=== PATIENT | female | born 1985 | race Caucasian/White ===

== ENCOUNTER 2018-01-22 12:55 | Emergency (ER) | payer SELFPAY ==
--- NOTE | 2018-01-22 14:40 | ER Document Report ---
ED Medical Screen (RME) - General Chief Complaint: Abdominal Pain Stated Complaint: ABDOMINAL PAIN Time Seen by Provider: 01/22/18 14:34 Mode of Arrival: Ambulatory Information source: Patient Notes: 32-year-old female with a history of reflux presents with complaint of abdominal pain. Patient states pain has been ongoing for 2 months. Pain is diffusely located. She states her upper abdomen is sharp, intermittent. The pains in her lower abdomen as described as heaviness. Patient has chronic nausea. She states recently she has had urinary frequency and urinary incontinence. Patient has not been seen for this prior. Last menstrual period was 2 days prior to arrival. She denies any sexual activity, vaginal discharge. Surgical history includes cholecystectomy. She admits to chronic soft stools. She denies any fever, chills, chest pain. She does have chronic back pain. I have greeted and performed a rapid medical assessment of the patient. A comprehensive evaluation and assessment will be performed by another ED provider. Medical decision making, lab review/xrays if performed will be reviewed by the ED provider assuming care of the patient. PHYSICAL EXAMINATION: GENERAL: Well-appearing, well-nourished and in no acute distress. HEAD: Atraumatic, normocephalic. EYES: Pupils equal round extraocular movements intact, conjunctiva are normal. ENT: Nares patent NECK: Normal range of motion Abdomen; diffuse tenderness with palpation. LUNGS: No respiratory distress Musculoskeletal: Normal range of motion NEUROLOGICAL: Normal speech, normal gait. PSYCH: Normal mood, normal affect. SKIN: Warm, Dry, normal turgor, no rashes or lesions noted. TRAVEL OUTSIDE OF THE [place] IN LAST 30 DAYS: No - HPI Onset: Other - 2 months prior to arrival Onset/Duration: Constant, Persistent, Worse Quality of pain: Stabbing, Other - Heavy Severity: Moderate Associated Symptoms: Abdominal pain, Diarrhea, Nausea Exacerbated by: Movement, Other - Taking fluids Relieved by: Denies Similar symptoms previously: Yes Recently seen / treated by doctor: No - Related Data Smoking: Non-smoker Frequency of alcohol use: None Drug Abuse: None Allergies/Adverse Reactions: Iodinated Contrast- Oral and IV Dye Allergy (Severe, Verified 01/22/18 14:35) Difficulty breathing Past Medical History - Social History Chew tobacco use (# tins/day): No Frequency of alcohol use: Rare Drug Abuse: None Pulmonary Medical History: Reports: Hx Bronchitis, Hx Pneumonia Neurological Medical History: Reports: Hx Migraine Renal/ Medical History: Reports: Hx Ovarian Cysts. Denies: Hx Peritoneal Dialysis Malignancy Medical History: Reports: Hx Cervical Cancer Musculoskeltal Medical History: Reports Hx Musculoskeletal Deformity, Reports Hx Musculoskeletal Trauma Past Surgical History: Reports: Hx Cholecystectomy, Hx Oral Surgery - Immunizations Immunizations up to date: Yes Hx Diphtheria, Pertussis, Tetanus Vaccination: Yes Physical Exam - Vital signs Vitals: Temp Pulse Resp BP Pulse Ox 98.7 F 78 18 142/93 H 99 01/22/18 13:00 01/22/18 13:00 01/22/18 13:00 01/22/18 13:00 01/22/18 13:00 Course - Vital Signs Vital signs: Temp Pulse Resp BP Pulse Ox 98.7 F 78 18 142/93 H 99 01/22/18 13:00 01/22/18 13:00 01/22/18 13:00 01/22/18 13:00 01/22/18 13:00
[2018-01-22 15:40] LABS: ABSOLUTE EOSINOPHILS # (AUTO) 0.1 10^3/uL (0.0-0.6); ABSOLUTE LYMPHOCYTES (AUTO) 2.3 10^3/uL (0.5-4.7); ABSOLUTE MONOCYTES (AUTO) 0.4 10^3/uL (0.1-1.4); ABSOLUTE NEUT (AUTO) 3.1 10^3/uL (1.7-8.2); BASOPHILS % (AUTO) 0.5 % (0-2); EOSINOPHILS % (AUTO) 1.1 % (0-6); HEMATOCRIT 36.8 % (36.0-47.0); HEMOGLOBIN 12.4 g/dL (12.0-15.5); LYMPHOCYTES % (AUTO) 39.5 % (13-45); MEAN CORPUSCULAR HEMOGLOBIN 28.7 pg (27.0-33.4); MEAN CORPUSCULAR HGB CONC 33.8 g/dL (32.0-36.0); MEAN CORPUSCULAR VOLUME 85 fl (80-97); MONOCYTES % (AUTO) 6.5 % (3-13); PLATELET COUNT 294 10^3/uL (150-450); RED BLOOD COUNT 4.33 10^6/uL (3.72-5.28); RED CELL DISTRIBUTION WIDTH 14.4 % (11.5-14.0); SEGMENTED NEUTROPHILS % (AUTO) 52.4 % (42-78); TOTAL CELLS COUNTED % (AUTO) 100 %; WHITE BLOOD COUNT 5.9 10^3/uL (4.0-10.5)
[2018-01-22 15:48] LABS: ALANINE AMINOTRANSFERASE 21 U/L (9-52); ALBUMIN 3.8 g/dL (3.5-5.0); ALKALINE PHOSPHATASE 72 U/L (38-126); ANION GAP 9 (5-19); ASPARTATE AMINO TRANSFERASE 16 U/L (14-36); BILIRUBIN,DIRECT 0.1 mg/dL (0.0-0.4); BILIRUBIN,TOTAL 0.1 mg/dL (0.2-1.3); BLOOD UREA NITROGEN 5 mg/dL (7-20); CALCIUM 9.1 mg/dL (8.4-10.2); CARBON DIOXIDE 29 mmol/L (22-30); CHLORIDE 106 mmol/L (98-107); GLUCOSE 88 mg/dL (75-110); LIPASE 74.2 U/L (23-300); POTASSIUM 4.2 mmol/L (3.6-5.0); SODIUM 143.8 mmol/L (137-145); TOTAL PROTEIN 6.4 g/dL (6.3-8.2)
[2018-01-22 15:59] LABS: APPEARANCE,URINE CLEAR; BILIRUBIN,URINE NEGATIVE (NEGATIVE); COLOR,URINE STRAW; GLUCOSE, URINE NEGATIVE (NEGATIVE); KETONES,URINE NEGATIVE (NEGATIVE); LEUKOCYTE ESTERASE,URINE NEGATIVE (NEGATIVE); NITRITE,URINE NEGATIVE (NEGATIVE); PROTEIN,URINE NEGATIVE (NEGATIVE); URINE SPECIFIC GRAVITY 1.006; UROBILINOGEN,URINE NEGATIVE mg/dL (<2.0)
[2018-01-22 16:25] VITALS: BP 116/72
--- NOTE | 2018-01-22 16:39 | ER Document Report ---
HPI - HPI Patient complains to provider of: Abdominal pain Onset: Other - Four years, worse over the past few days Onset/Duration: Worse Quality of pain: Sharp Pain Level: 5 Context: Patient presents complaining of abdominal pain to the abdomen for the past 4 years that worsened over the past few days. Patient states that she has had persistent abdominal pain since the of her last child. Patient complains of some urinary frequency and occasional stress incontinence. Patient reports nausea but denies any vomiting or diarrhea. Patient denies any fever. Associated Symptoms: Nausea, Other - Abdominal pain. denies: Nonproductive cough, Productive cough, Diarrhea, Fever, Vomiting Exacerbated by: Denies Relieved by: Denies Similar symptoms previously: Yes Recently seen / treated by doctor: No - ROS ROS below otherwise negative: Yes - CONSTITUTIONAL Constitutional: DENIES: Fever, Chills - CARDIOVASCULAR Cardiovascular: DENIES: Chest pain - RESPIRATORY Respiratory: DENIES: Trouble Breathing, Coughing - GASTROINTESTINAL Gastrointestinal: REPORTS: Abdominal Pain, Nausea. DENIES: Patient vomiting, Diarrhea - URINARY Urinary: REPORTS: Dysuria, Urgency Notes: Incontinence - REPRODUCTIVE Reproductive: DENIES: : - MUSCULOSKELETAL Musculoskeletal: REPORTS: Back Pain - DERM Skin Color: Normal Skin Problems: None Past Medical History - General Information source: Patient - Social History Smoking Status: Current Every Day Smoker Chew tobacco use (# tins/day): No Frequency of alcohol use: Rare Drug Abuse: None Occupation: [employer] Lives with: Family Family History: Reviewed & Not Pertinent Patient has suicidal ideation: No Patient has homicidal ideation: No Pulmonary Medical History: Reports: Hx Bronchitis, Hx Pneumonia Neurological Medical History: Reports: Hx Migraine Renal/ Medical History: Reports: Hx Ovarian Cysts. Denies: Hx Peritoneal Dialysis Musculoskeltal Medical History: Reports Hx Musculoskeletal Deformity, Reports Hx Musculoskeletal Trauma Past Surgical History: Reports: Hx Cholecystectomy, Hx Oral Surgery - Immunizations Immunizations up to date: Yes Hx Diphtheria, Pertussis, Tetanus Vaccination: Yes Vertical Provider Document - CONSTITUTIONAL Exam Limitations: Other - Patient unwilling to let provider proceed with full examination General Appearance: No Apparent Distress - INFECTION CONTROL TRAVEL OUTSIDE OF THE [place] IN LAST 30 DAYS: No - HEENT HEENT: Atraumatic, Normocephalic - NECK Neck: Normal Inspection - RESPIRATORY Respiratory: Breath Sounds Normal, No Respiratory Distress - CARDIOVASCULAR Cardiovascular: Regular Rate, Regular Rhythm, No Murmur - BACK Back: CVA Tenderness-Right, CVA Tenderness-Left - MUSCULOSKELETAL/EXTREMETIES Musculoskeletal/Extremeties: MAEW - NEURO Level of Consciousness: Awake, Alert - DERM Integumentary: Warm, Dry Course - Re-evaluation Re-evalutation: 01/22/18 16:37 Attempted to examine patient and obtain history from patient. Patient became upset after provider asked patient to point to the location of her most severe abdominal pain. Patient stated that her entire abdomen was painful and that she was tired of having to tell multiple people the same story. Patient denies any area of the abdomen that has more severe abdominal tenderness. Provider attempted to explain why she was asking the patient specific questions about her abdominal pain so as to better evaluate her symptoms, patient became increasingly agitated, belligerent and hostile. Patient stated that she would just leave and go to some other hospital because she was tired of waiting here in pain having to tell multiple people her story. Patient states that she needs to have her IV removed or she will rub it out herself and that she is leaving. RN informed of patient's intent to leave. Provider returned to room and attempted to explain risks of leaving to patient, patient very angry, insisting that provider leave the room and that she had nothing else to say to the provider. Provider attempted to encourage patient to return at any point if she wanted to continue with her evaluation, patient again insisted that provider leave the room. - Vital Signs Vital signs: Temp Pulse Resp BP Pulse Ox 98.4 F 63 18 116/72 100 01/22/18 16:21 01/22/18 16:21 01/22/18 16:21 01/22/18 16:21 01/22/18 16:21 - Laboratory Result Diagrams: 01/22/18 15:00 01/22/18 15:00 Laboratory results interpreted by me: 01/22/18 01/22/18 15:00 15:00 RDW 14.4 H BUN 5 L Total Bilirubin 0.1 L 01/22/18 18:26 Labs- Entire Visit 01/22/18 01/22/18 01/22/18 15:00 15:00 15:00 WBC 5.9 RBC 4.33 Hgb 12.4 Hct 36.8 MCV 85 MCH 28.7 MCHC 33.8 RDW 14.4 H Plt Count 294 Seg Neutrophils % 52.4 Lymphocytes % 39.5 Monocytes % 6.5 Eosinophils % 1.1 Basophils % 0.5 Absolute Neutrophils 3.1 Absolute Lymphocytes 2.3 Absolute Monocytes 0.4 Absolute Eosinophils 0.1 Absolute Basophils 0.0 Sodium 143.8 Potassium 4.2 Chloride 106 Carbon Dioxide 29 Anion Gap 9 BUN 5 L Creatinine 0.59 Est GFR ( Amer) > 60 Est GFR (Non-Af Amer) > 60 Glucose 88 Lactic Acid 1.1 Calcium 9.1 Total Bilirubin 0.1 L Direct Bilirubin 0.1 Neonat Total Bilirubin Not Reportable Neonat Direct Bilirubin Not Reportable Neonat Indirect Bili Not Reportable AST 16 ALT 21 Alkaline Phosphatase 72 Total Protein 6.4 Albumin 3.8 Lipase 74.2 Urine Color Urine Appearance Urine pH Ur Specific [place] Urine Protein Urine Glucose (UA) Urine Ketones Urine Blood Urine Nitrite Urine Bilirubin Urine Urobilinogen Ur Leukocyte Esterase Urine WBC (Auto) Urine Bacteria (Auto) Squamous Epi Cells Auto Urine Mucus (Auto) Urine Ascorbic Acid Urine HCG, Qual 01/22/18 15:00 WBC RBC Hgb Hct MCV MCH MCHC RDW Plt Count Seg Neutrophils % Lymphocytes % Monocytes % Eosinophils % Basophils % Absolute Neutrophils Absolute Lymphocytes Absolute Monocytes Absolute Eosinophils Absolute Basophils Sodium Potassium Chloride Carbon Dioxide Anion Gap BUN Creatinine Est GFR ( Amer) Est GFR (Non-Af Amer) Glucose Lactic Acid Calcium Total Bilirubin Direct Bilirubin Neonat Total Bilirubin Neonat Direct Bilirubin Neonat Indirect Bili AST ALT Alkaline Phosphatase Total Protein Albumin Lipase Urine Color STRAW Urine Appearance CLEAR Urine pH 7.0 Ur Specific [place] 1.006 Urine Protein NEGATIVE Urine Glucose (UA) NEGATIVE Urine Ketones NEGATIVE Urine Blood NEGATIVE Urine Nitrite NEGATIVE Urine Bilirubin NEGATIVE Urine Urobilinogen NEGATIVE Ur Leukocyte Esterase NEGATIVE Urine WBC (Auto) 1 Urine Bacteria (Auto) TRACE Squamous Epi Cells Auto 1 Urine Mucus (Auto) RARE Urine Ascorbic Acid NEGATIVE Urine HCG, Qual NEGATIVE Discharge - Discharge Clinical Impression: Abdominal pain Qualifiers: Abdominal location: unspecified location Qualified Code(s): R10.9 - Unspecified abdominal pain Condition: Stable Disposition: ELOPED
== END 2018-01-22 16:55 | disposition left against medical advice (07) ==
LOC: ER 12:55
DX: R10.84 Generalized abdominal pain (principal); N39.46 Mixed incontinence; R35.0 Frequency of micturition; R11.0 Nausea; R30.0 Dysuria; M54.9 Dorsalgia, unspecified; F17.200 Nicotine dependence, unspecified, uncomplicated; Z53.29 Procedure and treatment not carried out because of patient's decision for other reasons
CPT/HCPCS: 36415; 80053; 81001; 81025; 83605; 83690; 85025

== ENCOUNTER 2018-02-03 12:24 | Emergency (ER) | payer MEDICAID ==
[2018-02-03 12:31] VITALS: BP 127/90
[2018-02-03] MEDS ORDERED: LIDOCAINE 2% VISCOUS SOLN 20 ML UDCUP PO ONE (12:52)
--- NOTE | 2018-02-03 13:10 | ER Document Report ---
HPI - HPI Pain Level: 3 Notes: Patient is a 32-year-old female who presents to the ED complaining of dental pain to #32-3 days without obvious abscess or purulent discharge. Patient states that she has chronic issues with her teeth and has a broken tooth in that area. She has not been into see a dentist. She still able to eat and drink without difficulties. She has been using some Advil with minimal relief. Patient also presents complaining of urinary burning, urgency, and frequency. Patient states that she may have a UTI and would like her urine checked. She is still having normal bowel movements. No other concerns or complaints at this time. Denies any drug allergies. Denies any headache, fever, neck pain, URI, sore throat, chest pain, palpitations, syncope, cough, shortness of breath , wheeze, dyspnea, abdominal pain, nausea/vomiting/diarrhea, urinary retention, or rash. - ROS Systems Reviewed and Negative: Yes All other systems reviewed and negative - REPRODUCTIVE Reproductive: DENIES: : Past Medical History - Social History Smoking Status: Unknown if Ever Smoked Family History: Reviewed & Not Pertinent Patient has suicidal ideation: No Patient has homicidal ideation: No Pulmonary Medical History: Reports: Hx Bronchitis, Hx Pneumonia Neurological Medical History: Reports: Hx Migraine Renal/ Medical History: Reports: Hx Ovarian Cysts. Denies: Hx Peritoneal Dialysis Malignancy Medical History: Reports: Hx Cervical Cancer Musculoskeltal Medical History: Reports Hx Musculoskeletal Deformity, Reports Hx Musculoskeletal Trauma Past Surgical History: Reports: Hx Cholecystectomy, Hx Oral Surgery - Immunizations Immunizations up to date: Yes Hx Diphtheria, Pertussis, Tetanus Vaccination: Yes Vertical Provider Document - CONSTITUTIONAL Agree With Documented VS: Yes Notes: PHYSICAL EXAMINATION: GENERAL: Well-appearing, well-nourished and in no acute distress. HEAD: Atraumatic, normocephalic. EYES: Pupils equal round and reactive to light, extraocular movements intact, sclera anicteric, conjunctiva are normal. ENT: EAC clear b/l. TM's intact b/l without erythema, fluid, or perforation. Nares patent and without discharge. oropharynx clear without exudates. No tonsilar hypertrophy or erythema. Moist mucous membranes. No sinus tenderness. Uvula midline. No palatine shift. No tongue protrusion. No respiratory compromise. Mouth: Poor dentition. + mild decay and mild gingivitis. No obvious abscess or discharge noted. No facial swelling. + tenderness to tooth #3 NECK: Normal range of motion, supple without lymphadenopathy. No rigidity/ meningismus. LUNGS: Breath sounds clear to auscultation bilaterally and equal. No wheezes rales or rhonchi. HEART: Regular rate and rhythm without murmurs, rubs, gallops. Abdomen: soft, non-tender. BS present. No CVA tenderness b/l. NEUROLOGICAL: Normal speech, normal gait. PSYCH: Normal mood, normal affect. SKIN: Warm, Dry, normal turgor, no rashes or lesions noted. - INFECTION CONTROL TRAVEL OUTSIDE OF THE [place] IN LAST 30 DAYS: No Course - Re-evaluation Re-evalutation: 02/03/18 14:07 Patient is an afebrile, well-hydrated, 38-year-old male who presents to the ED with dental pain, suspect nerve root etiology versus infection. Vitals are acceptable. PE is otherwise unremarkable. UA neg. UC pending. No other I&D, labs, or imaging warranted at this time based on H&P. Viscous lidocaine dispensed today. I will send her home with a prescription for penicillin and macrobid. Low suspicion for any meningitis, sepsis, peritonsillar/pharyngeal abscess, respiratory compromise, Khai's, temporal arteritis, acute abd, or other emergent systemic condition at this time. Patient is aware this condition can change from initial presentation and she needs to monitor symptoms closely. Conservative measures otherwise for symptoms. Call to schedule an appointment with a dentist for further evaluation and management. Recheck with your PCM this week as well. Return to the ED with any worsening/ concerning symptoms otherwise as reviewed in discharge. Patient is in agreement. - Vital Signs Vital signs: Temp Pulse Resp BP Pulse Ox 99 F 78 18 127/90 H 97 02/03/18 12:30 02/03/18 12:30 02/03/18 12:30 02/03/18 12:30 02/03/18 12:30 Discharge - Discharge Clinical Impression: Pain, dental, Dysuria Condition: Stable Disposition: HOME, SELF-CARE Instructions: Penicillin V K ([facility]), Toothache ([facility]) Additional Instructions: Push fluids (i.e. water, cranberry juice) Proper hygenic technique Keep the skin clean Tylenol/ibuprofen as needed Riner and floss twice daily Maintain fluid intake Take antibiotics as directed Mouthwash, salt water gargles, peroxide rinse as needed Recheck with PCM this week Call today/tomorrow and schedule an appointment with your dentist for further evaluation If any concern of STD, see the health department for testing Return to the ED with any worsening symptoms and/or development of fever, headache, facial swelling, swelling of lips/tongue/throat, trouble swallowing, drooling, hoarseness, neck pain/stiffness, chest pain, palpitations, syncope, shortness of breath, trouble breathing, abdominal pain, n/v/d, numbness/tingling , or other worsening symptoms that are concerning to you. Prescriptions: Penicillin V Potassium [Penicillin Vk 250 mg Tablet] 500 mg PO BID #40 tablet Forms: Elevated Blood Pressure Referrals: [facility] [Provider Group] - Follow up as needed [facility] [Provider Group] - [facility] - Follow up as needed
[2018-02-03 13:38] LABS: APPEARANCE,URINE CLEAR; BILIRUBIN,URINE NEGATIVE (NEGATIVE); COLOR,URINE STRAW; GLUCOSE, URINE NEGATIVE (NEGATIVE); KETONES,URINE NEGATIVE (NEGATIVE); LEUKOCYTE ESTERASE,URINE LARGE (NEGATIVE); NITRITE,URINE NEGATIVE (NEGATIVE); PROTEIN,URINE NEGATIVE (NEGATIVE); UROBILINOGEN,URINE NEGATIVE mg/dL (<2.0)
== END 2018-02-03 14:15 | disposition home or self-care (01) ==
LOC: ER 12:24
DX: K02.9 Dental caries, unspecified (principal); K05.10 Chronic gingivitis, plaque induced; K08.89 Other specified disorders of teeth and supporting structures; R30.0 Dysuria; R39.15 Urgency of urination; R35.0 Frequency of micturition; Z85.41 Personal history of malignant neoplasm of cervix uteri
CPT/HCPCS: 99283; 36415; 87086; 81025; 87088; 81001; J3490

== ENCOUNTER 2018-04-16 15:44 | Emergency (ER) | payer MEDICAID ==
--- NOTE | 2018-04-16 17:54 | ER Document Report ---
ED General - General Chief Complaint: Sore Throat Stated Complaint: SORE THROAT, MOUTH PAIN Time Seen by Provider: 04/16/18 17:46 Mode of Arrival: Ambulatory Information source: Patient Notes: 32-year-old female presented to ED for complaint of having sores to her mouth lips burning blisters to the outside of her mouth sore throat and oh by the way also she has vaginal discharge. Patient is alert and oriented respirations regular and unlabored speaking with full sentences. She states that the listers to her mouth her burning to her lips and her sore throat as well as her vaginal discharge started after she was taken antibiotics that she was given by the [employer] headgate operator for bacteria and her intestines. TRAVEL OUTSIDE OF THE [place] IN LAST 30 DAYS: No - HPI Onset: Other Onset/Duration: Gradual - 2 days, Worse Quality of pain: Burning, Sharp Severity: Severe Pain Level: 5 Associated symptoms: Sore throat, Other - Blisters to her lips sores in her mouth and vaginal discharge she states sometimes it is green and sometimes it yellow Exacerbated by: Food Relieved by: Denies Similar symptoms previously: Yes Recently seen / treated by doctor: Yes - Related Data Allergies/Adverse Reactions: Iodinated Contrast- Oral and IV Dye Allergy (Severe, Verified 01/22/18 14:35) Difficulty breathing amoxicillin Allergy (Verified 04/16/18 15:45) Past Medical History - General Information source: Patient - Social History Smoking Status: Current Every Day Smoker Cigarette use (# per day): Yes - 15 cigarettes a day Chew tobacco use (# tins/day): No Smoking Education Provided: Yes - 4 minutes Frequency of alcohol use: None Drug Abuse: None Occupation: None Lives with: Other - Godmother Family History: Reviewed & Not Pertinent Patient has suicidal ideation: No Patient has homicidal ideation: No - Past Medical History Cardiac Medical History: Reports: None Pulmonary Medical History: Reports: Hx Bronchitis, Hx Pneumonia EENT Medical History: Reports: None Neurological Medical History: Reports: Hx Migraine Endocrine Medical History: Reports: None Renal/ Medical History: Reports: Hx Ovarian Cysts Malignancy Medical History: Reports: Hx Cervical Cancer GI Medical History: Reports: Hx Gastritis, Other - States she is being tested to find out what is wrong Musculoskeletal Medical History: Reports Hx Musculoskeletal Deformity, Reports Hx Musculoskeletal Trauma Skin Medical History: Reports None Psychiatric Medical History: Reports: None Traumatic Medical History: Reports: None Infectious Medical History: Reports: None Past Surgical History: Reports: Hx Cholecystectomy, Hx Oral Surgery, Other - Eye surgery - Immunizations Immunizations up to date: Yes Hx Diphtheria, Pertussis, Tetanus Vaccination: Yes Review of Systems - Review of Systems Constitutional: No symptoms reported EENT: Throat pain, Mouth pain, Other - Sores to her lips Cardiovascular: No symptoms reported Respiratory: No symptoms reported Gastrointestinal: No symptoms reported Genitourinary: Discharge Female Genitourinary: No symptoms reported Musculoskeletal: No symptoms reported Skin: No symptoms reported Hematologic/Lymphatic: No symptoms reported Neurological/Psychological: No symptoms reported -: Yes All other systems reviewed and negative Physical Exam - Vital signs Vitals: Temp Pulse Resp BP Pulse Ox 99.2 F 67 18 107/74 99 04/16/18 16:08 04/16/18 16:08 04/16/18 16:08 04/16/18 16:08 04/16/18 16:08 Interpretation: Normal - General General appearance: Appears well, Alert - HEENT Head: Normocephalic, Atraumatic Eyes: Normal Pupils: PERRL Ears: Normal External canal: Normal Tympanic membrane: Normal Sinus: Normal Nasal: Normal Mouth/Lips: Other - Sisters and sores to her lips Mucous membranes: Normal Pharynx: Erythema, Post nasal drainage, Tonsillar hypertrophy Neck: Anterior cervical chain - Respiratory Respiratory status: No respiratory distress Chest status: Nontender Breath sounds: Normal Chest palpation: Normal - Cardiovascular Rhythm: Regular Heart sounds: Normal auscultation Murmur: No - Abdominal Inspection: Normal Distension: No distension Bowel sounds: Normal Tenderness: Nontender Organomegaly: No organomegaly - Genitourinary Notes: Patient did self swabs for her vaginal discharge. - Back Back: Normal, Nontender - Extremities General upper extremity: Normal inspection, Nontender, Normal color, Normal ROM , Normal temperature General lower extremity: Normal inspection, Nontender, Normal color, Normal ROM , Normal temperature, Normal weight bearing. No: Jai's sign - Neurological Neuro grossly intact: Yes Cognition: Normal Orientation: AAOx4 Alexandre Coma Scale Eye Opening: Spontaneous Alexandre Coma Scale Verbal: Oriented [place] Coma Scale Motor: Obeys Commands Alexandre Coma Scale Total: 15 Speech: Normal Motor strength normal: LUE, RUE, LLE, RLE Sensory: Normal - Psychological Associated symptoms: Normal affect, Normal mood - Skin Skin Temperature: Warm Skin Moisture: Dry Skin Color: Normal Course - Re-evaluation Re-evalutation: 04/16/18 20:26 Patient stated multiple times that her symptoms were all because of medications that were given to her by her primary doctor. She states that there was no viral illnesses or any body functions that were causing her mouth sores or the blisters on her mouth. When I tried to explain that herpes simplex could cause virus to her mouth she became very angry and stated that she did not have herpes and that I should not say she had herpes when I when she did not it was caused by a medication. She asked for a second opinion. Dr. Meyer went in to examine the patient and she again disagreed with everything he had to say according to Dr. Meyer. She became angry with him also. Patient did have a vaginal yeast infection she was treated with Diflucan for her yeast infection. She was given Magic mouthwash for her mouth discomfort. And patient was discharged home to follow-up with her primary doctor. - Vital Signs Vital signs: Temp Pulse Resp BP Pulse Ox 97.8 F 88 18 114/78 100 04/16/18 18:50 04/16/18 18:50 04/16/18 16:08 04/16/18 18:50 04/16/18 18:50 Discharge - Discharge Clinical Impression: Yeast vaginitis, Sore throat (viral) Condition: Stable Disposition: HOME, SELF-CARE Additional Instructions: VAGINAL YEAST INFECTION: You have evidence of a yeast infection -- called "edi." A vaginal yeast infection often causes itching and discharge. While not dangerous, it can be very unpleasant. A yeast infection often follows the use of powerful antibiotics. It is more likely to occur in diabetics. The treatment now is usually a single pill of Diflucan, but also an antifungal cream or suppository may be used for a few days. You do not need to avoid sexual intercourse. Recurrences are common. You can make a recurrence less likely by wearing cotton underwear and avoiding tight clothing. For mild recurrences, you can try metg-xar-cvjquvn creams or suppositories that are made specifically for yeast. If the symptoms do not resolve, you should follow up for re-examination. Sometimes treatment of the sexual partner is necessary if infections are recurrent. SORE THROAT: Sore throats may be caused by viruses, bacteria, or fungi. Most are due to a virus, and must get better on their own. Bacterial sore throats, particularly those due to "strep," need treatment with antibiotics. If an antibiotic is prescribed, be sure to take the medication for a full 10 days. Failure to take the antibiotic can result in complications such as rheumatic fever. Sometimes, an injection of antibiotics is given instead of pills or liquid. This single "shot" is equal in effectiveness to the oral medication. To relieve symptoms, take acetaminophen for pain. Sip clear liquids frequently, or eat popsicles or ice chips. Anesthetic sprays or lozenges may help. Make sure the air in the room is not too dry. Avoid using decongestants or antihistamines. Call the doctor if there is no improvement in two days, or if you have difficulty breathing, increasing throat pain, high fever, rash, or frequent vomiting. FLUCONAZOLE: Fluconazole (Diflucan) is an antifungal drug. It is useful for serious fungal infections, but is also excellent for oral or vaginal yeast infections. Diflucan interacts with some medicines. This is a concern if you are taking anticoagulants (such as Coumadin), phenytoin (Dilantin), cyclosporin, or oral hypoglycemics (such as tolbutamide, Orinase, glipizide, Glucotrol, glyburide, DiaBeta, Glynase, and Micronase). Be sure the doctor knows if you are taking one of these medicines. We don't know how Diflucan affects . If you are planning to become , discuss this with your doctor. Diflucan has few side effects. Minor side effects may include nausea, headache, or diarrhea. Call the doctor if you develop a skin rash, shortness of breath, or other new symptoms. Salt and soda solution 1 quart of water 1 tablespoon of salt 1 teaspoon of baking soda Mixed 3 ingredients together and boil for 1 minute Placed in a covered quart jar Use 1/2 ounce of cold solution to gargle 3 times a day FOLLOW-UP CARE: If you have been referred to a physician for follow-up care, call the physician s office for an appointment as you were instructed or within the next two days. If you experience worsening or a significant change in your symptoms, notify the physician immediately or return to the Emergency Department at any time for re-evaluation. Prescriptions: Fluconazole [Diflucan] 150 mg PO ONCE PRN #1 tablet PRN Reason: Nystatin/Dexameth/Diphen [Magic Mouthwash (Omh Formula) Susp] 5 ml PO QID #120 ml Referrals: CARLITOS COOMBS DO [Primary Care Provider] - Follow up as needed
[2018-04-16 18:11] LABS: BACTERIA (WET MOUNT) 4+ BACTERIA SEEN; EPITHELIALS (WET MOUNT) 3+ EPITHELIALS SEEN; T.VAGINALIS (WET MOUNT) NO TRICHOMONAS SEEN; WBCS (WET MOUNT) 1+ WBCS SEEN; YEAST (WET MOUNT) BUDDING YEAST SEEN
[2018-04-16] MEDS ORDERED: FLUCONAZOLE 100 MG TABLET PO ONE (18:22)
[2018-04-16 18:52] VITALS: BP 114/78
[2018-04-16 19:29] LABS: CHLAM PCR NOT DETECTED (NOT DETECT); GON PCR NOT DETECTED (NOT DETECT)
== END 2018-04-16 18:52 | disposition home or self-care (01) ==
LOC: ER 15:44
DX: B37.3 Candidiasis of vulva and vagina (principal); J02.9 Acute pharyngitis, unspecified; K08.9 Disorder of teeth and supporting structures, unspecified; F17.210 Nicotine dependence, cigarettes, uncomplicated; Z88.0 Allergy status to penicillin; Z85.41 Personal history of malignant neoplasm of cervix uteri; Z90.49 Acquired absence of other specified parts of digestive tract
CPT/HCPCS: 99283; 87070; 87210; 87880; 87491; 87591; J3490

== ENCOUNTER 2019-07-15 10:01 | Emergency (ER) | payer MEDICAID ==
[2019-07-15 10:07] VITALS: BP 118/82
--- NOTE | 2019-07-15 10:32 | ER Document Report ---
ED Medical Screen (RME) - General Chief Complaint: Numbness of Arm Stated Complaint: NUMBNESS Time Seen by Provider: 07/15/19 10:24 Primary Care Provider: CARLITOS COOMBS DO [Primary Care Provider] - Follow up as needed Notes: 33-year-old female presents to ED for complaint of upper and lower back pain with numbness to both arms and feet intermittently for the last couple years. She states it is been worse for the last couple weeks. She states no one is ever done an x-ray of her upper or lower back just told her that it was normal. She is alert oriented respirations regular nonlabored speaking in full sentences. Currently on her menstrual cycle. I have greeted and performed a rapid initial assessment of this patient. A comprehensive ED assessment and evaluation of the patient, analysis of test results and completion of medical decision making process will be conducted by an additional ED providers. TRAVEL OUTSIDE OF THE [place] IN LAST 30 DAYS: No - Related Data Allergies/Adverse Reactions: Iodinated Contrast Media [Iodinated Contrast- Oral and IV Dye] Allergy (Severe, Verified 07/15/19 10:15) Difficulty breathing amoxicillin Allergy (Verified 07/15/19 10:15) Past Medical History - Social History Chew tobacco use (# tins/day): No Frequency of alcohol use: Rare Drug Abuse: None Pulmonary Medical History: Reports: Hx Bronchitis, Hx Pneumonia Neurological Medical History: Reports: Hx Migraine Renal/ Medical History: Reports: Hx Ovarian Cysts. Denies: Hx Peritoneal Dialysis Malignancy Medical History: Reports: Hx Cervical Cancer GI Medical History: Reports: Hx Gastritis Musculoskeltal Medical History: Reports Hx Musculoskeletal Deformity, Reports Hx Musculoskeletal Trauma Past Surgical History: Reports: Hx Cholecystectomy, Hx Oral Surgery, Other - Eye surgery - Immunizations Immunizations up to date: Yes Hx Diphtheria, Pertussis, Tetanus Vaccination: Yes Physical Exam - Vital signs Vitals: Temp Pulse Resp BP Pulse Ox 98.6 F 91 18 118/82 98 07/15/19 10:07 07/15/19 10:07 07/15/19 10:07 07/15/19 10:07 07/15/19 10:07 Course - Vital Signs Vital signs: Temp Pulse Resp BP Pulse Ox 98.6 F 91 18 118/82 98 07/15/19 10:07 07/15/19 10:07 07/15/19 10:07 07/15/19 10:07 07/15/19 10:07 Doctor's Discharge - Discharge Referrals: CARLITOS COOMBS, [Primary Care Provider] - Follow up as needed
--- NOTE | 2019-07-15 11:21 | RADIOLOGY REPORT (SQ) ---
EXAM DESCRIPTION: T SPINE AP/LAT COMPLETED DATE/TIME: 07/15/2019 10:51 am REASON FOR STUDY: pain upper lower back with interminent numbness COMPARISON: None. NUMBER OF VIEWS: Two views. TECHNIQUE: AP and lateral radiographic images acquired of the thoracic spine. LIMITATIONS: None. FINDINGS: MINERALIZATION: Normal. ALIGNMENT: Normal. No scoliosis. VERTEBRAE: No fracture or bone lesion. Maintained height, normal segmentation. DISCS: No significant loss of height or significant narrowing. No large osteophytes. HARDWARE: None in the spine. MEDIASTINUM AND SOFT TISSUES: Normal heart size and aortic contour. No soft tissue abnormality. VISUALIZED LUNG GREER: Clear. OTHER: No other significant finding. IMPRESSION: NO SIGNIFICANT RADIOGRAPHIC FINDING IN THE THORACIC SPINE. TECHNICAL DOCUMENTATION: JOB ID: [id number] [employer]- All Rights Reserved Reading location - IP/workstation name: [email or web address]
--- NOTE | 2019-07-15 11:22 | RADIOLOGY REPORT (SQ) ---
EXAM DESCRIPTION: CHEST 2 VIEWS COMPLETED DATE/TIME: 07/15/2019 10:51 am REASON FOR STUDY: numbness both hands COMPARISON: None. TECHNIQUE: Frontal and lateral radiographic views of the chest acquired. NUMBER OF VIEWS: Two view. LIMITATIONS: None. FINDINGS: LUNGS AND PLEURA: No opacities, masses or pneumothorax. No pleural effusion. MEDIASTINUM AND HILAR STRUCTURES: No masses or contour abnormalities. HEART AND VASCULAR STRUCTURES: Heart normal size. No evidence for failure. BONES: No acute findings. HARDWARE: None in the chest. OTHER: No other significant finding. IMPRESSION: NO SIGNIFICANT RADIOGRAPHIC FINDING IN THE CHEST. TECHNICAL DOCUMENTATION: JOB ID: [id number] [employer]- All Rights Reserved Reading location - IP/workstation name: [email or web address]
--- NOTE | 2019-07-15 11:25 | RADIOLOGY REPORT (SQ) ---
EXAM DESCRIPTION: L SPINE WHOLE COMPLETED DATE/TIME: 07/15/2019 10:51 am REASON FOR STUDY: pain in upper and lower back with numbness COMPARISON: None. NUMBER OF VIEWS: Five views including obliques. TECHNIQUE: AP, lateral, oblique, and sacral radiographic images acquired of the lumbar spine. LIMITATIONS: None. FINDINGS: MINERALIZATION: Normal. SEGMENTATION: Normal. No transitional anatomy. ALIGNMENT: Normal. VERTEBRAE: Maintained height. No fracture or worrisome bone lesion. DISCS: Preserved height. No significant osteophytes or end plate irregularity. POSTERIOR ELEMENTS: Pedicles and facets are intact. No pars defect or posterior arch defects. HARDWARE: None in the spine. PARASPINAL SOFT TISSUES: Normal. PELVIS: Intact as visualized. No fractures or worrisome bone lesions. SI joints intact. OTHER: No other significant finding. IMPRESSION: NORMAL 5 VIEW LUMBAR SPINE. TECHNICAL DOCUMENTATION: JOB ID: [id number] [employer]- All Rights Reserved Reading location - IP/workstation name: [email or web address]
--- NOTE | 2019-07-15 12:03 | ER Document Report ---
HPI - HPI Time Seen by Provider: 07/15/19 10:24 Pain Level: 3 - REPRODUCTIVE LMP: 06/2019 Reproductive: DENIES: : Past Medical History - Social History Smoking Status: Current Every Day Smoker Chew tobacco use (# tins/day): No Frequency of alcohol use: Rare Drug Abuse: None Family History: Reviewed & Not Pertinent Patient has suicidal ideation: No Patient has homicidal ideation: No Pulmonary Medical History: Reports: Hx Bronchitis, Hx Pneumonia Neurological Medical History: Reports: Hx Migraine Renal/ Medical History: Reports: Hx Ovarian Cysts. Denies: Hx Peritoneal Dialysis Malignancy Medical History: Reports: Hx Cervical Cancer GI Medical History: Reports: Hx Gastritis Musculoskeletal Medical History: Reports Hx Musculoskeletal Deformity, Reports Hx Musculoskeletal Trauma Past Surgical History: Reports: Hx Cholecystectomy, Hx Oral Surgery, Other - Eye surgery - Immunizations Immunizations up to date: Yes Hx Diphtheria, Pertussis, Tetanus Vaccination: Yes Vertical Provider Document - INFECTION CONTROL TRAVEL OUTSIDE OF THE [place] IN LAST 30 DAYS: No Course - Vital Signs Vital signs: Temp Pulse Resp BP Pulse Ox 98.6 F 91 18 118/82 98 07/15/19 10:07 07/15/19 10:07 07/15/19 10:07 07/15/19 10:07 07/15/19 10:07 Discharge - Discharge Referrals: CARLITOS COOMBS DO [Primary Care Provider] - Follow up as needed
--- NOTE | 2019-07-15 15:08 | ER Document Report ---
ED General - General Chief Complaint: Numbness of Arm Stated Complaint: NUMBNESS Time Seen by Provider: 07/15/19 10:24 Primary Care Provider: CARLITOS COOMBS DO [NO LOCAL MD] - Follow up as needed Mode of Arrival: Ambulatory Information source: Patient TRAVEL OUTSIDE OF THE [place] IN LAST 30 DAYS: No - HPI Notes: 33-year-old female presents ED for complaints of pain between - Related Data Allergies/Adverse Reactions: Iodinated Contrast Media [Iodinated Contrast- Oral and IV Dye] Allergy (Severe, Verified 07/15/19 10:15) Difficulty breathing amoxicillin Allergy (Verified 07/15/19 10:15) Past Medical History - General Information source: Patient, Relative - Social History Smoking Status: Current Every Day Smoker Chew tobacco use (# tins/day): No Frequency of alcohol use: Rare Drug Abuse: None Family History: Reviewed & Not Pertinent Patient has suicidal ideation: No Patient has homicidal ideation: No Pulmonary Medical History: Reports: Hx Bronchitis, Hx Pneumonia Neurological Medical History: Reports: Hx Migraine Renal/ Medical History: Reports: Hx Ovarian Cysts. Denies: Hx Peritoneal Dialysis Malignancy Medical History: Reports: Hx Cervical Cancer GI Medical History: Reports: Hx Gastritis Musculoskeletal Medical History: Reports Hx Musculoskeletal Deformity, Reports Hx Musculoskeletal Trauma Past Surgical History: Reports: Hx Cholecystectomy, Hx Oral Surgery, Other - Eye surgery - Immunizations Immunizations up to date: Yes Hx Diphtheria, Pertussis, Tetanus Vaccination: Yes Physical Exam - Vital signs Vitals: Temp Pulse Resp BP Pulse Ox 98.6 F 91 18 118/82 98 07/15/19 10:07 07/15/19 10:07 07/15/19 10:07 07/15/19 10:07 07/15/19 10:07 Course - Re-evaluation Re-evalutation: 07/15/19 19:16 HPI, review of systems, physical examination was not performed due to patient refusing any assessment when this provider came into the room due to x-rays being performed in triage, patient was informed that x-rays were negative. Patient states that "nobody believes that I am in pain here" and informed me that she "I do not want you to touch me, I do not want anyone to touch me I just want to leave and I have my discharge papers and leave". I informed the patient that without doing a full assessment on her physical examination I cannot make a clinical impression in which clinic cannot discharge her because I do not know what her clinical impression is without an examination. Patient was very hostile, aggressive, to the point where I had to inform the patient that if she did hit me, that would be a assault. and that I would not touch her without her consent for examination. This patient did not give consent. I did offer for the patient to be examined by a another provider, she states she did not want to stay because the "room is dirty". I asked the patient and her partner to discuss if they would like to stay, I left the room to give him privacy to discuss this. approximately 5 minutes later the nurse went into the room to see if the patient would still like to proceed with further medical evaluation, patient and partner were not in room, waiting room was checked, bathroom more check to see if patient was in the restroom which she was not, patient eloped without letting a medical personnel know that she was leaving - Vital Signs Vital signs: Temp Pulse Resp BP Pulse Ox 98.6 F 91 18 118/82 98 07/15/19 10:07 07/15/19 10:07 07/15/19 10:07 07/15/19 10:07 07/15/19 10:07 Discharge - Discharge Clinical Impression: Back pain Condition: Stable Disposition: ELOPED Referrals: CARLITOS COOMBS DO [NO LOCAL MD] - Follow up as needed
== END 2019-07-15 12:33 | disposition left against medical advice (07) ==
LOC: ER 10:01
DX: M54.9 Dorsalgia, unspecified (principal); M54.5 Low back pain; R20.0 Anesthesia of skin; F17.200 Nicotine dependence, unspecified, uncomplicated; Z85.41 Personal history of malignant neoplasm of cervix uteri; Z91.041 Radiographic dye allergy status; Z88.0 Allergy status to penicillin; Z53.29 Procedure and treatment not carried out because of patient's decision for other reasons
CPT/HCPCS: 71046; 72070; 72110; 99281

== ENCOUNTER 2020-08-24 15:29 | Emergency (ER) | payer MEDICAID ==
[2020-08-24 15:43] VITALS: BP 127/79
[2020-08-24] MEDS ORDERED: ALBUTEROL SULFATE 0.083% NEB 2.5 MG/3 ML AMPUL NEB ONE (18:51)
--- NOTE | 2020-08-24 18:53 | ER Document Report ---
ED Medical Screen (RME) - General Chief Complaint: Chest Pressure Stated Complaint: SHORT OF BREATH,CONGESTION Time Seen by Provider: 08/24/20 18:51 Primary Care Provider: HAROON FELICIANO PA-C [Primary Care Provider] - Follow up as needed TRAVEL OUTSIDE OF THE [place] IN LAST 30 DAYS: No - HPI Notes: 08/24/20 18:51 34-year-old female presents to ED for evaluation of increased shortness of breath of the last 2 weeks. Patient notes that she is ready tested negative for Covid. Reports she feels short of breath and does have left-sided ear pain. Denies fever or chills. Denies history of asthma or COPD. Patient is a daily smoker. Denies use of recreational drugs. Endorses no fevers or chills at home. Denies other complaints. - Related Data Allergies/Adverse Reactions: Iodinated Contrast Media [Iodinated Contrast- Oral and IV Dye] Allergy (Severe, Verified 08/24/20 16:28) Difficulty breathing amoxicillin Allergy (Verified 07/15/19 10:15) Past Medical History - Social History Frequency of alcohol use: None Drug Abuse: None Pulmonary Medical History: Reports: Hx Bronchitis, Hx Pneumonia Neurological Medical History: Reports: Hx Migraine Renal/ Medical History: Reports: Hx Ovarian Cysts. Denies: Hx Peritoneal Dialysis Malignancy Medical History: Reports: Hx Cervical Cancer GI Medical History: Reports: Hx Gastritis Musculoskeltal Medical History: Reports Hx Musculoskeletal Deformity, Reports Hx Musculoskeletal Trauma Past Surgical History: Reports: Hx Cholecystectomy, Hx Oral Surgery, Other - Eye surgery - Immunizations Immunizations up to date: Yes Hx Diphtheria, Pertussis, Tetanus Vaccination: Yes Physical Exam - Vital signs Vitals: Temp Pulse Resp BP Pulse Ox 98.1 F 83 18 127/79 H 98 08/24/20 15:42 08/24/20 15:42 08/24/20 15:42 08/24/20 15:42 08/24/20 15:42 08/24/20 18:29 General: No acute distress. Alert and oriented x3. Sitting comfortably in a stretcher. Skin: Intact without any jaundice, pallor, or erythema. Warm and dry. HEENT: Normocephalic, atraumatic. Pupils are equal round reactive to light and accommodation. Extraocular movements are intact. TMs without erythema with bilateral bulging L>R. Canals are clear. Nares patent without any discharge. Teeth in good condition. Pharynx without erythema, edema, or exudates. No tonsillar enlargement. Uvula is midline. Airway is patent. Neck: Supple with no lymphadenopathy. Full range of motion. Heart: Regular rate and rhythm. S1,S2. No murmurs, rubs, or gallops. Tender to palpation along left anterior and posterior chest. Lungs: Diminshed to auscultation bilaterally. No wheezes, rhonchi, rales. Equal chest expansion. No retractions. Neuro: GCS 15. Moving all extremities without discomfort. Psych: Mood and affect appropriate. 08/24/20 18:29 Course - Vital Signs Vital signs: Temp Pulse Resp BP Pulse Ox 98.1 F 83 18 127/79 H 98 08/24/20 15:42 08/24/20 15:42 08/24/20 15:42 08/24/20 15:42 08/24/20 15:42 Doctor's Discharge - Discharge Referrals: HAROON FELICIANO PA-C [Primary Care Provider] - Follow up as needed
--- NOTE | 2020-08-24 19:38 | RADIOLOGY REPORT (SQ) ---
EXAM DESCRIPTION: CHEST SINGLE VIEW IMAGES COMPLETED DATE/TIME: 08/24/2020 7:14 pm REASON FOR STUDY: chest pain COMPARISON: 07/15/2019 EXAM PARAMETERS: NUMBER OF VIEWS: One view. TECHNIQUE: Single frontal radiographic view of the chest acquired. RADIATION DOSE: NA LIMITATIONS: None. FINDINGS: LUNGS AND PLEURA: No opacities, masses or pneumothorax. No pleural effusion. MEDIASTINUM AND HILAR STRUCTURES: No masses. Contour normal. HEART AND VASCULAR STRUCTURES: Heart normal in size. Normal vasculature. BONES: No acute findings. HARDWARE: None in the chest. OTHER: No other significant finding. IMPRESSION: NO ACUTE RADIOGRAPHIC FINDING IN THE CHEST. TECHNICAL DOCUMENTATION: JOB ID: [id number] [employer]- All Rights Reserved Reading location - IP/workstation name: [email or web address]
--- NOTE | 2020-08-24 21:01 | ER Document Report ---
ED General - General Chief Complaint: Chest Pressure Stated Complaint: SHORT OF BREATH,CONGESTION Time Seen by Provider: 08/24/20 18:51 Primary Care Provider: HAROON FELICIANO PA-C [Primary Care Provider] - Follow up as needed Notes: 34-year-old female smoker presents with congestion, cough, shortness of breath for the past 2 weeks. Patient felt improved after albuterol treatment in ED. Unable to get full history from patient as she became very upset when nurse tried to obtain a Covid swab. Patient says that I am trying to pretend that she has Covid when she knows that she does not have it so that I can get "funding". Patient says that she has had symptoms like recurrent symptoms since before the pandemic began. Patient says that she has been very careful to avoid people and stays home 31/03 and therefore she knows that she does not have Covid and that I am "faking" her having Covid. TRAVEL OUTSIDE OF THE [place] IN LAST 30 DAYS: No - Related Data Allergies/Adverse Reactions: Iodinated Contrast Media [Iodinated Contrast- Oral and IV Dye] Allergy (Severe, Verified 08/24/20 16:28) Difficulty breathing amoxicillin Allergy (Verified 07/15/19 10:15) Past Medical History - General Information source: Patient - Social History Smoking Status: Current Every Day Smoker Frequency of alcohol use: None Drug Abuse: None Family History: Reviewed & Not Pertinent Pulmonary Medical History: Reports: Hx Bronchitis, Hx Pneumonia Neurological Medical History: Reports: Hx Migraine Renal/ Medical History: Reports: Hx Ovarian Cysts. Denies: Hx Peritoneal Dialysis Malignancy Medical History: Reports: Hx Cervical Cancer GI Medical History: Reports: Hx Gastritis Musculoskeletal Medical History: Reports Hx Musculoskeletal Deformity, Reports Hx Musculoskeletal Trauma Past Surgical History: Reports: Hx Cholecystectomy, Hx Oral Surgery, Other - Eye surgery - Immunizations Immunizations up to date: Yes Hx Diphtheria, Pertussis, Tetanus Vaccination: Yes Review of Systems - Review of Systems -: Yes ROS unobtainable due to patient's medical condition - Patient uncooperative Physical Exam - Vital signs Vitals: Temp Pulse Resp BP Pulse Ox 98.1 F 83 18 127/79 H 98 08/24/20 15:42 08/24/20 15:42 08/24/20 15:42 08/24/20 15:42 08/24/20 15:42 - Notes Notes: PHYSICAL EXAMINATION: GENERAL: Well-appearing, well-nourished and in no acute distress. HEAD: Atraumatic, normocephalic. EYES: Pupils equal round and appropriate constriction, sclera anicteric, conjunctiva are normal. ENT: nares patent, moist mucous membranes. NECK: Normal range of motion, supple without lymphadenopathy LUNGS: Normal respiratory rate and effort, speaking in full sentences without any signs of dyspnea, no tripoding, managing secretions HEART: Regular rate, no JVD EXTREMITIES: Normal range of motion, moving all extremities spontaneously NEUROLOGICAL: Awake, alert PSYCH: No psychomotor agitation, no pressured speech, does not appear to be responding to internal stimuli, although preoccupied with concerns that I am going to pretend she has Covid she is otherwise showing good insight into her symptoms and is able to demonstrate that she understands the risks of refusing further care. Patient says that she would rather than continue care here. Patient shows that she has capacity with good insight into the repercussions of leaving without full medical evaluation. SKIN: Dry, normal color Course - Re-evaluation Re-evalutation: 08/24/20 21:09 Patient with 2 weeks of cough congestion shortness of breath that improved with albuterol. Patient however did not allow me to complete full medical evaluation as she became very upset that I ordered a Covid test when she knows that she does not have Covid. No signs of being intoxicated, patient awake alert and conversing appropriately with normal speech, patient shows capacity. Although patient was upset I did try to calm her several times and assure her that she had the right to refuse a Covid swab and that we would not send it and that I was still talking to her because I was trying to assess her symptoms and see if there was something else going on that I would need to treat but she declined this. Refused lung auscultation. Patient was however able to emphatically speak and gesticulate and walk around the ED without any signs of shortness of breath. Given her smoking history and improvement with albuterol I gave her a course of prednisone and albuterol and information for primary care doctor to follow-up with. I made sure the patient was aware that she can return to the ED anytime to continue care or go to another emergency department if she feels more comfortable. Patient demonstrated understanding of this. - Vital Signs Vital signs: Temp Pulse Resp BP Pulse Ox 98.1 F 83 18 127/79 H 98 08/24/20 15:42 08/24/20 15:42 08/24/20 15:42 08/24/20 15:42 08/24/20 15:42 - Laboratory Results Critical Laboratory Results Reviewed: No Critical Results - Radiology Results Critical Radiology Results Reviewed: No Critical Results Discharge - Discharge Clinical Impression: Cough Disposition: AGAINST MEDICAL ADVICE Additional Instructions: You and allow me to complete your evaluation to see if there are any other cau ses of your shortness of breath that could be dangerous. Return to the emergency department at any time to continue your care. You can also go to any other emergency department of your choosing. Especially could reconsider returning if you feel worse, have more difficulty breathing, chest pain, dizziness, fainting, confusion, fever, or any other worsening or alarming symptoms. Follow-up with your primary care doctor within the next 3 days. Given your multiple episodes of cough and shortness of breath symptoms and your improvement after albuterol it is possible that your symptoms are secondary to COPD from your smoking and I have sent steroids to the pharmacy to treat this. Take albuterol every 4 hours for the next 4 days. Prescriptions: Prednisone [Deltasone 20 mg Tablet] 2 tab PO DAILY 5 Days #10 tablet Albuterol Sulfate [Proair HFA Inhalation Aerosol 8.5 gm MDI] 2 puff IH Q4H PRN #1 mdi PRN Reason: Referrals: HAROON FELICIANO PA-C [Primary Care Provider] - Follow up in 3-5 days
== END 2020-08-24 21:09 | disposition left against medical advice (07) ==
LOC: ER 15:29
DX: R05 Cough (principal); R07.89 Other chest pain; R06.02 Shortness of breath; F17.200 Nicotine dependence, unspecified, uncomplicated; Z91.041 Radiographic dye allergy status; Z88.0 Allergy status to penicillin; Z85.41 Personal history of malignant neoplasm of cervix uteri
CPT/HCPCS: 99283; 94640; 71045; J7613